=== PATIENT | female | born 2000 | race Caucasian/White ===

== ENCOUNTER 2020-03-17 00:17 | Emergency (ER) | payer OTHER ==
--- NOTE | 2020-03-17 01:13 | CR ---
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 COMPARISON: None available FINDINGS: A portable erect AP view of the chest was obtained at 0059 hours. The lungs are clear. No focal or diffuse infiltrates are present. The heart is normal in size. The mediastinum is normal in appearance. The osseous structures are normal in appearance for the patient`s age. IMPRESSION: Normal portable chest single view. Dictated by Cy Noe MD @ Mar 17 2020 1:09AM Signed by Dr. Cy Noe @ Mar 17 2020 1:10AM
[2020-03-17 01:22] LABS: BLOOD UREA NITROGEN,BUN 9 mg/dL (7.0-18.0); CARBON DIOXIDE,CO2 28.5 mmol/L (21.0-32.0); CHLORIDE,CL 104 mmol/L (98-107); GLUCOSE RANDOM 97 mg/dL (74-106); POTASSIUM,K 4.3 mmol/L (3.5-5.1); SODIUM,NA 140 mmol/L (136-145)
--- NOTE | 2020-03-17 02:39 | EDM.PDOC ---
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 The patient states that for the last 2 days she has been experiencing a rash on her lips which is mildly painful which she describes as a burning sensation. She rates the pain as improved but currently rated as a 1-2 out of 10. She states that she has been using Vaseline on her lips which has helped. In addition she has been experiencing severe eye burning that has improved. She denies any purulent drainage and states that her eyelids may be a little swollen. She denies any headache, ear pain, or rash anywhere else on her body. She denies any radiation of this pain. She denies any mucosal lesions in her mouth. She states that she has not had any fever, chills, chest pain, shortness of breath, abdominal pain, nausea or vomiting. She denies any recent illnesses, joint pain. She denies any blistering of this rash. She denies any blurry vision, numbness or tingling. She has not yet t ried any pain medication. She states that the pain is not exacerbated by anything. She states that she called her neurologist and after discussion with her they were thinking that this might be early onset Harrison-Ginger syndrome secondary to her medication and told her to come to the emergency department. REVIEW OF SYSTEMS: Constitutional: Denies fever, chills. Eyes: Denies eye pain Ears, Nose, Mouth, & Throat: Positive for eye pain and conjunctivitis. Denies earache Cardiovascular: Denies chest pain Respiratory: Denies shortness of breath Gastrointestinal: Denies Nausea, vomiting, diarrhea, hematochezia. Genitourinary: Denies hematuria dysuria, vaginal bleeding, vaginal discharge, vaginal pain Skin: Positive for lip rash and pain Neurological: Denies blurred vision, numbness, tingling, weakness, headache Psychiatric: Denies depression PAST MEDICAL HISTORY: As per history of present illness and as reviewed below otherwise noncontributory. SURGICAL HISTORY: As per history of present illness and as reviewed below otherwise noncontributory. LMP: Has an IUD SOCIAL HISTORY: As per history of present illness and as reviewed below otherwise noncontributory. FAMILY HISTORY: As per history of present illness and as reviewed below otherwise noncontributory. EXAMINATION OF ORGAN SYSTEMS/BODY AREAS: Constitutional: Blood pressure was 138/91, heart rate 88, respiratory rate 18 with an oxygen saturation 9 9% on room air. Temperature 36.3 General: Overall well-appearing woman who is in no acute distress Psychiatric: Appropriate mood and affect. Eyes: No scleral icterus but there is mild conjunctival injection. Pupils are equal round and reactive to light. Extraocular movements were intact. No nystagmus. There is mild eyelid edema. ENMT: Moist mucous membranes. No mucosal lesions or abrasions. No pharyngeal erythema. The patient's upper and lower lids appear mildly edematous without any obvious erythema and some sloughing. There is no blisters, ulceration, or blackening. Cardiovascular: Regular, rate, and rhythm. No gallops, murmurs, or rubs. Bilateral upper extremity pulses symmetric and intact. No peripheral edema. No JVD. Respiratory: Lungs clear to auscultation bilaterally. No wheezes, rales, or rhonchi. Gastrointestinal: Soft, non-tender, non-distended. Normoactive bowel sounds Genitourinary: No suprapubic tenderness Musculoskeletal: Normal range of motion. Skin: No lesions or abrasions. 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 At this time her airway is intact and her vitals are normal. Will obtain labs including CBC with differential, CMP, and CRP. We will obtain a chest x-ray as there is an association of Harrison-Ginger's with pneumonia. Laboratory: CBC is unremarkable. CMP is unremarkable. CRP is normal. The radiological images were viewed by myself along with reading the report from the radiologist. Chest x-ray does not reveal any acute cardiopulmonary process. After labs and imaging I did discuss the results with the patient. I did discuss with her that at this time given the rarity of Harrison-Ginger syndrome I would like to speak with a neurologist. She was amenable to this plan. The patient's neurologist Dr. Hillman is not certified juvenile probation officer until the AM so I contacted [facility] in [place]. I spoke with Dr. Borja who stated to stop some Lamictal and to admit the patient for observation as this could be early onset Harrison- Ginger syndrome and it can progress. Therefore I did have a discussion with the patient and she was amenable to admission at this time. Will obtain a Covid swab. I contacted Dr. Cobian who accepted the patient for observation to be evaluated by her neurologist tomorrow morning. After placing the admit order the patient did come back coronavirus positive. We did have to cancel the admission as we do not have any Covid positive bed capability. I did discuss this with Dr. Cobian. On my evaluation the patient's symptoms had not progressed and the rash did not seem to worsen. I did have a discussion with her that I do believe she needs to be evaluated by Dr. Hillman. I discussed that we could observe her in the emergency department until Dr. Jose Falcon can visit her here in the emergency department. She was amenable to this plan. I did reevaluate the patient periodically throughout the evening and her symptoms did not worsen. Her neurologist is not on-call until 8 AM therefore [facility] evaluation by neurology DISPOSITION: The patient was signed out to [facility] day team physician pending neurology and further disposition CONDITION: Fair PROCEDURES: None FINAL IMPRESSION(S)/DIAGNOSES: 1. 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 - Related Data Allergies Allergy/AdvReac Type Severity Reaction Status Date / Time avocado Allergy Other Verified 03/17/20 00:34 Latex, Natural Rubber Allergy Other Verified 03/17/20 00:34 Home Meds: Home Meds QUEtiapine [SEROquel] 25 mg PO BID 03/17/20 [History] lamoTRIgine [Lamictal] 75 mg PO BID 03/17/20 [History] Past Medical History HEENT History: Reports: None Cardiovascular History: Reports: None Respiratory History: Reports: None Gastrointestinal History: Reports: None Genitourinary History: Reports: None CLAIM BENEFIT SPECIALIST History: Reports: None Musculoskeletal History: Reports: None Neurological History: Reports: None Psychiatric History: Reports: Anxiety, Depression, PTSD, Other (See Below) Other Psychiatric History: Borderline Personality Endocrine/Metabolic History: Reports: None Hematologic History: Reports: None Immunologic History: Reports: None Oncologic (Cancer) History: Reports: None Dermatologic History: Reports: Other (See Below) Other Dermatologic History: Christiano Ginger Disease - Infectious Disease History Infectious Disease History: Reports: None - Past Surgical History Head Surgeries/Procedures: Reports: None Social & Family History - Recreational Drug Use Recreational Drug Use: No ED ROS GENERAL - Review of Systems Review Of Systems: See Below ED EXAM, SKIN/RASH Exam: See Below Departure - Departure Time of Disposition: 02:16 Disposition: Home, Self-Care 01 Condition: Fair Clinical Impression: Harrison-Ginger syndrome, Drug-induced skin rash, COVID-19 - Discharge Information Instructions: COVID-19 Frequently Asked Questions, Harrison-Ginger Syndrome Referrals: Jeff Frederick MD [Primary Care Provider] - Forms: ED Department Discharge Additional Instructions: Your symptoms were concerning for Christiano Ginger syndrome, however your labs are not reflective of this. This still could be an early Harrison-Ginger syndrome so if you experience worsening skin sloughing of your mouth, nose, vagina, rectum, or other mucous membranes then you should come back to the hospital. Your neurologist is planning on calling you this afternoon to discuss alternative options and would like you to stop the Lamictal. It is likely that your symptoms could be due to COVID-19 infection. I have seen other patients with similar complaints of red itchy eyes who ended up having Covid. The following information is given to patients seen in the emergency department who are being discharged to home. This information is to outline your options for follow-up care. We provide all patients seen in our emergency department with a follow-up referral. The need for follow-up, as well as the timing and circumstances, are variable depending upon the specifics of your emergency department visit. If you don't have a primary care physician on staff, we will provide you with a referral. We always advise you to contact your personal physician following an emergency department visit to inform them of the circumstance of the visit and for follow-up with them and/or the need for any referrals to a consulting specialist. The emergency department will also refer you to a specialist when appropriate. This referral assures that you have the opportunity for follow-up care with a specialist. All of these measure are taken in an effort to provide you with optimal care, which includes your follow-up. Under all circumstances we always encourage you to contact your private physician who remains a resource for coordinating your care. When calling for follow-up care, please make the office aware that this follow-up is from your recent emergency room visit. If for any reason you are refused follow-up, please contact the [facility] Emergency Department at and asked to speak to the emergency department charge nurse. Please follow up with your primary care physician. If you do not have a primary care physician, see below: [facility] [address] [place] [id number] [facility] [address] [place] [address] [id number] [facility] [address] [place] [id number] Sepsis Event Note (ED) - Evaluation Sepsis Screening Result: No Definite Risk <Eddie Madrigal - Last Filed: 03/17/20 08:15> Course - Vital Signs Last Recorded V/S: Last Vital Signs Temp 97.6 F 03/17/20 06:37 Pulse 81 03/17/20 06:37 Resp 18 03/17/20 06:37 BP 101/69 03/17/20 06:37 Pulse Ox 100 03/17/20 06:37 - Orders/Labs/Meds Labs: Laboratory Tests 03/17/20 03/17/20 03/17/20 Range/Units 00:53 00:53 02:15 WBC 8.38 (4.0-11.0) K/uL RBC 4.74 (4.30-5.90) M/uL Hgb 13.8 (12.0-16.0) g/dL Hct 40.8 (36.0-46.0) % MCV 86.1 (80.0-98.0) fL MCH 29.1 (27.0-32.0) pg MCHC 33.8 (31.0-37.0) g/dL RDW Std Deviation 37.5 (28.0-62.0) fl RDW Coeff of Gucci 12 (11.0-15.0) % Plt Count 366 (150-400) K/uL MPV 9.70 (7.40-12.00) fL Neut % (Auto) 66.1 (48.0-80.0) % Lymph % (Auto) 26.5 (16.0-40.0) % Free[place] % (Auto) 6.4 (0.0-15.0) % Eos % (Auto) 0.8 (0.0-7.0) % Baso % (Auto) 0.2 (0.0-1.5) % Neut # (Auto) 5.5 (1.4-5.7) K/uL Lymph # (Auto) 2.2 (0.6-2.4) K/uL Freeborn # (Auto) 0.5 (0.0-0.8) K/uL Eos # (Auto) 0.1 (0.0-0.7) K/uL Baso # (Auto) 0.0 (0.0-0.1) K/uL Sodium 140 (136-145) mmol/L Potassium 4.3 (3.5-5.1) mmol/L Chloride 104 (98-107) mmol/L Carbon Dioxide 28.5 (21.0-32.0) mmol/L BUN 9 (7.0-18.0) mg/dL Creatinine 0.8 (0.6-1.0) mg/dL Est Cr Clr Drug Dosing 95.59 mL/min Estimated GFR (MDRD) > 60.0 ml/min Glucose 97 (74-106) mg/dL Calcium 9.2 (8.5-10.1) mg/dL Total Bilirubin 0.3 (0.2-1.0) mg/dL AST 22 (15-37) IU/L ALT 25 (14-63) IU/L Alkaline Phosphatase 63 (46-116) U/L C-Reactive Protein <0.20 (0.00-0.90) mg/dL Total Protein 7.8 (6.4-8.2) g/dL Albumin 4.3 (3.4-5.0) g/dL Globulin 3.5 (2.6-4.0) g/dL Albumin/Globulin Ratio 1.2 (0.9-1.6) SARS-CoV-2 RNA (SHANKAR) POSITIVE H (NEGATIVE) - Re-Assessments/Exams Free Text/Narrative Re-Assessment/Exam: 03/17/20 07:03 Patient care transitioned from day-team ED physician to follow up neurology Dr. Hillman consultation. 03/17/20 08:[address] Hillman who will call patient this afternoon to discuss alternative options. SHe is to stop lamictal. Return precautions for SJS discussed Departure - Departure Time of Disposition: 08:13 Condition: Good Sepsis Event Note (ED) - Focused Exam Vital Signs: Vital Signs Temp Pulse Resp BP Pulse Ox 03/17/20 06:37 97.6 F 81 18 101/69 100 03/17/20 04:22 97.8 F 80 18 110/71 99 03/17/20 02:00 91 18 109/82 97 03/17/20 00:30 97.3 F 88 18 138/91 H 99
== END 2020-03-17 08:27 | disposition home or self-care (01) ==
LOC: MW.ED 00:17
DX: U07.1 COVID-19 (principal); L27.0 Generalized skin eruption due to drugs and medicaments taken internally; L51.1 Stevens-Johnson syndrome; Z91.018 Allergy to other foods; Z91.040 Latex allergy status
CPT/HCPCS: 36415; 71045; 71045-26; 80053; 85025; 86140; 99283-25; 99284; U0002

== ENCOUNTER 2021-04-24 21:03 | Emergency (ER) | payer MEDICAID, OTHER ==
[2021-04-24] MEDS ORDERED: Pantoprazole 80 MG in Sodium Chloride 0.9% 10 ML IVPUSH ONE (21:25)
[2021-04-24 22:19] LABS: BLOOD UREA NITROGEN,BUN 8 mg/dL (7.0-18.0); CARBON DIOXIDE,CO2 24.5 mmol/L (21.0-32.0); CHLORIDE,CL 105 mmol/L (98-107); GLUCOSE RANDOM 108 mg/dL (74-106); POTASSIUM,K 3.4 mmol/L (3.5-5.1); SODIUM,NA 144 mmol/L (136-145)
[2021-04-24 22:40] LABS: ACETAMINOPHEN <2.0 ug/mL
[2021-04-24] MEDS ORDERED: Lactated Ringers 1,000 ML IV STA (23:11)
[2021-04-25 02:20] LABS: ACETAMINOPHEN < 2.0 ug/mL; BLOOD UREA NITROGEN,BUN 9 mg/dL (7.0-18.0); CARBON DIOXIDE,CO2 25.2 mmol/L (21.0-32.0); CHLORIDE,CL 108 mmol/L (98-107); GLUCOSE RANDOM 98 mg/dL (74-106); POTASSIUM,K 3.5 mmol/L (3.5-5.1); SODIUM,NA 144 mmol/L (136-145)
[2021-04-25] MEDS ORDERED: Lactated Ringers 1,000 ML IV STA (03:11)
[2021-04-25] MEDS ORDERED: Cephalexin 500 MG Cap PO ONE (03:57)
[2021-04-25] MEDS ORDERED: levETIRAcetam 500 MG Tab PO STA (10:19)
== END 2021-04-25 11:27 | disposition home or self-care (01) ==
LOC: MW.ED 21:03
DX: T39.312A Poisoning by propionic acid derivatives, intentional self-harm, initial encounter (principal); T43.592A Poisoning by other antipsychotics and neuroleptics, intentional self-harm, initial encounter; F32.9 Major depressive disorder, single episode, unspecified; N39.0 Urinary tract infection, site not specified; Z20.822 Contact with and (suspected) exposure to COVID-19
CPT/HCPCS: 36415; 80053; 80143; 80179; 80305; 80307; 81001; 81025; 83735; 85025; 87635; 93005; 96374; 99285; A9270; C9113; J7120; 93010; U0002